=== PATIENT | female | born 1965 | race Caucasian/White ===

== ENCOUNTER 2020-07-07 12:08 | Emergency (ER) | payer OTHER ==
[2020-07-07 12:19] VITALS: PULSE 66; TEMP 97.9; BMI 31.2
[2020-07-07 13:39] VITALS: BP 139/78
== END 2020-07-07 14:04 | disposition home or self-care (01) ==
LOC: JERFT 12:08
DX: R03.0 Elevated blood-pressure reading, without diagnosis of hypertension (principal)
CPT/HCPCS: 99281-25

== ENCOUNTER 2021-04-02 10:45 | Emergency (ER) | payer OTHER ==
[2021-04-02 10:52] VITALS: BP 121/62; PULSE 71; TEMP 97.6; BMI 30.2
[2021-04-02] MEDS ORDERED: METHOCARBAMOL 500 MG TABLET PO ONE (11:37)
[2021-04-02] MEDS ORDERED: LIDOCAINE 5% TOPICAL PATCH TP ONE (11:37)
[2021-04-02] MEDS ORDERED: DEXAMETHASONE LIQUID 0.5 MG/5 ML PO ONE (11:37)
[2021-04-02] MEDS ORDERED: LIDOCAINE 5% TOPICAL PATCH ONE (11:45)
[2021-04-02] MEDS ORDERED: METHOCARBAMOL 500 MG TABLET ONE (11:45)
[2021-04-02] MEDS ORDERED: DEXAMETHASONE SOD PHOSPHATE 10 MG/1 ML VIAL ONE (11:45)
== END 2021-04-02 13:16 | disposition home or self-care (01) ==
LOC: JERFT 10:45
DX: M54.31 Sciatica, right side (principal)
CPT/HCPCS: 72100-TC-FY; 99283-25

== ENCOUNTER 2021-04-30 10:55 | Emergency (ER) | payer OTHER ==
[2021-04-30 11:02] VITALS: BP 105/68; PULSE 66; TEMP 97.6; BMI 30.2
[2021-04-30] MEDS ORDERED: CYCLOBENZAPRINE HCL 10 MG TABLET (FP) ONE (12:33)
[2021-04-30] MEDS ORDERED: CYCLOBENZAPRINE HCL 10 MG TABLET (FP) PO ONE (12:37)
== END 2021-04-30 12:40 | disposition home or self-care (01) ==
LOC: JER 10:55 → JERFT 10:55
DX: S03.40XA Sprain of jaw, unspecified side, initial encounter (principal); X50.0XXA Overexertion from strenuous movement or load, initial encounter
CPT/HCPCS: 99283-25

== ENCOUNTER 2021-06-25 18:24 | Emergency (ER) | payer OTHER ==
[2021-06-25 18:40] VITALS: BMI 31.2
[2021-06-25] MEDS ORDERED: IBUPROFEN 600 MG TABLET (FP) PO ONE (20:56)
[2021-06-25] MEDS ORDERED: ACETAMINOPHEN 500 MG TABLET (FP) PO ONE (21:05)
[2021-06-25] MEDS ORDERED: ACETAMINOPHEN 500 MG TABLET (FP) ONE (21:06)
[2021-06-25 22:20] VITALS: BP 141/77; PULSE 89; TEMP 98.2
[2021-06-26 13:07] LABS: SARS-CoV-2 NAA Not Detected (Not Detected)
== END 2021-06-25 22:47 | disposition home or self-care (01) ==
LOC: JER 18:24
DX: J02.9 Acute pharyngitis, unspecified (principal); J06.9 Acute upper respiratory infection, unspecified
CPT/HCPCS: 87651; 87804; 99283-25; C9803-CS; U0003; U0005

== ENCOUNTER 2021-06-29 19:00 | Emergency (ER) | payer OTHER ==
[2021-06-29 19:21] VITALS: BP 129/79; PULSE 90; TEMP 98.2; BMI 31.2
[2021-06-29] MEDS ORDERED: FAMOTIDINE 20 MG/50 ML IVPB 20 MG/50 ML MG IVPB ONE (19:49)
[2021-06-29] MEDS ORDERED: ACETAMINOPHEN 1000 MG/100 ML BAG IVPB ONE (19:50)
[2021-06-29] MEDS ORDERED: ACETAMINOPHEN INJECTION 100 ML IVPB ONE (19:56)
[2021-06-29] MEDS ORDERED: FAMOTIDINE 10 MG TABLET PO ONE (20:44)
[2021-06-29] MEDS ORDERED: FAMOTIDINE 20 MG TABLET ONE (20:45)
== END 2021-06-29 21:04 | disposition home or self-care (01) ==
LOC: JER 19:00
PROC: 3E033GC Introduction of Other Therapeutic Substance into Peripheral Vein, Percutaneous Approach (ICD-10-PCS; principal; 2021-06-29)
DX: T78.40XA Allergy, unspecified, initial encounter (principal)
CPT/HCPCS: 99284-25